=== PATIENT | male | born 1965 ===

== ENCOUNTER 2019-05-26 22:22 | Emergency (ER) | payer OTHER ==
[~2019-05-26] VITALS: Ht 177.8 cm; Wt 86.2 kg
--- NOTE | 2019-05-26 22:45 | NUR ---
ED Nurse Note: Patient walked in to ER from home due to left leg pain 04/19 with abrasion S/P fall 4 days ago. No discharges noted. No active bleeding noted. As per pt, he thinks that the abrasions got infected and that he could not walk properly because of the pain. alert and oriented, verbally responsive. No SOB. Breathing even and unlabored. Afebrile. VSS. Family member at bedside.
--- NOTE | 2019-05-26 23:08 | Emergency Room Report ---
History of Present Illness General Chief Complaint: Lower Extremity Injury Source: Patient Present Illness HPI Patient presents with complaints of increased redness and swelling to his left leg after falling 4 days ago patient has sustained an abrasion to the left lower leg He reports that he was putting peroxide on it however now noticed increased redness and swelling Denies any calf pain denies any fevers or chills Denies any chest pain or shortness of breath denies any abdominal pain Allergies: Coded Allergies: No Known Allergies (Unverified , 05/26/19) Patient History Past Medical History: see triage record Reviewed Nursing Documentation: PMH: Agreed; PSxH: Agreed Nursing Documentation-PM Past Medical History: No Stated History Hx Hypertension: Yes Review of Systems All Other Systems: negative except mentioned in HPI Physical Exam Vital Signs Date Time Temp Pulse Resp B/P (MAP) Pulse Ox O2 Delivery O2 Flow Rate FiO2 05/26/19 22:38 98.2 62 18 108/76 (87) 95 Room Air Sp02 EP Interpretation: reviewed, normal General Appearance: well appearing, no apparent distress Head: normocephalic, atraumatic Eyes: bilateral eye PERRL, bilateral eye EOMI ENT: hearing grossly normal, normal pharynx, TMs + canals normal, uvula midline Neck: full range of motion, supple, no meningismus, no bony tend Respiratory: lungs clear, normal breath sounds, no rhonchi, no respiratory distress, no retraction, no accessory muscle use Cardiovascular #1: normal peripheral pulses, regular rate, rhythm, no gallop, no JVD, no murmur Gastrointestinal: normal bowel sounds, non tender, soft, no mass, no organomegaly, non-distended, no guarding, no hernia, no pulsatile mass, no rebound Genitourinary: no CVA tenderness Musculoskeletal: other - Secondary healing abrasion involving the left anterior tibial area also proximal knee, area in the tibial area is approximately 6 x 2 cm there is some mild surrounding erythema and, swelling involving the left leg compared to the right side Neurologic: oriented x3, responsive, hospice liaison III-XII nml as tested, motor strength/ tone normal, sensory intact Psychiatric: mood/affect normal Skin: other - as above Lymphatic: normal inspection, no adenopathy Medical Decision Making Diagnostic Impression: Primary Impression: Cellulitis ER Course Multiple differentials including but not limited to sepsis, cellulitis, abscess considered Patient's blood work is at baseline levels patient was given Initial antibiotics through the IV Repeat evaluation reveals appropriate vital signs Patient stable for close outpatient follow-up Labs Test 05/26/19 23:00 White Blood Count 9.6 K/UL (4.8-10.8) Red Blood Count 5.08 M/UL (4.70-6.10) Hemoglobin 14.9 G/DL (14.2-18.0) Hematocrit 44.0 % (42.0-52.0) Mean Corpuscular Volume 87 FL (80-99) Mean Corpuscular Hemoglobin 29.3 PG (27.0-31.0) Mean Corpuscular Hemoglobin Concent 33.8 G/DL (32.0-36.0) Red Cell Distribution Width 11.1 % (11.6-14.8) Platelet Count 243 K/UL (150-450) Mean Platelet Volume 5.8 FL (6.5-10.1) Neutrophils (%) (Auto) 71.3 % (45.0-75.0) Lymphocytes (%) (Auto) 15.3 % (20.0-45.0) Monocytes (%) (Auto) 11.9 % (1.0-10.0) Eosinophils (%) (Auto) 0.8 % (0.0-3.0) Basophils (%) (Auto) 0.7 % (0.0-2.0) Sodium Level 141 MMOL/L (136-145) Potassium Level 3.8 MMOL/L (3.5-5.1) Chloride Level 104 MMOL/L (98-107) Carbon Dioxide Level 30 MMOL/L (21-32) Anion Gap 8 mmol/L (5-15) Blood Urea Nitrogen 13 mg/dL (7-18) Creatinine 0.9 MG/DL (0.55-1.30) Estimat Glomerular Filtration Rate > 60 mL/min (>60) Glucose Level 147 MG/DL (74-106) Calcium Level 9.5 MG/DL (8.5-10.1) Total Bilirubin 0.6 MG/DL (0.2-1.0) Aspartate Amino Transf (AST/SGOT) 18 U/L (15-37) Alanine Aminotransferase (ALT/SGPT) 33 U/L (12-78) Alkaline Phosphatase 78 U/L (46-116) Total Protein 6.7 G/DL (6.4-8.2) Albumin 3.2 G/DL (3.4-5.0) Globulin 3.5 g/dL Albumin/Globulin Ratio 0.9 (1.0-2.7) Last Vital Signs Date Time Temp Pulse Resp B/P (MAP) Pulse Ox O2 Delivery O2 Flow Rate FiO2 05/26/19 22:38 98.2 62 18 108/76 (87) 95 Room Air Status: improved Disposition: HOME, SELF-CARE Condition: Improved Scripts Ibuprofen* (MOTRIN*) 600 Mg Tablet 600 MG ORAL Q8H PRN for For Pain, #20 TAB 0 Refills Prov: Arline Tucker DO 05/27/19 Trimethoprim/Sulfamethoxazole 160/800* (BACTRIM DS TABLET*) 1 Each Tablet 1 TAB ORAL Q12H for 10 Days, #20 TAB 0 Refills Prov: Arline Tucker DO 05/27/19 Cephalexin* (KEFLEX*) 500 Mg Capsule 500 MG ORAL EVERY 6 HOURS for 10 Days, CAP Prov: Arline Tucker DO 05/27/19 Referrals: [facility],REFERRING (PCP) Additional Instructions: Patient is provided with the discharge instructions notified to follow up with primary doctor in the next 2-3 days otherwise return to the er with any worsening symptoms. Please note that this report is being documented using [employer] technology. This can lead to erroneous entry secondary to incorrect interpretation by the dictating instrument. Arline Tucker DO May 26, 2019 23:08
[2019-05-26] MEDS ORDERED: Bactrim-DS 1 tab ORAL ONE (23:15)
[2019-05-26] MEDS ORDERED: HYDROcodone/Acetamin 5/325 tab ORAL ONE (23:15)
[2019-05-26] MEDS ORDERED: cefTRIAXone 1 GM in NS 55 ML IVPB ONE (23:15)
[2019-05-26 23:30] LABS: BASOPHILS % (AUTO) 0.7 % (0.0-2.0); EOSINOPHILS % (AUTO) 0.8 % (0.0-3.0); HEMOGLOBIN 14.9 G/DL (14.2-18.0); LYMPHOCYTES % (AUTO) 15.3 % (20.0-45.0); MEAN CORPUSCULAR VOLUME 87 FL (80-99); MONOCYTES % (AUTO) 11.9 % (1.0-10.0); NEUTROPHILS % (AUTO) 71.3 % (45.0-75.0); PLATELET COUNT 243 K/UL (150-450); RED BLOOD COUNT 5.08 M/UL (4.70-6.10); RED CELL DISTRIBUTION WIDTH 11.1 % (11.6-14.8); WHITE BLOOD COUNT 9.6 K/UL (4.8-10.8)
[2019-05-26 23:39] LABS: ANION GAP 8 mmol/L (5-15); BLOOD UREA NITROGEN 13 mg/dL (7-18); CALCIUM 9.5 MG/DL (8.5-10.1); CARBON DIOXIDE 30 MMOL/L (21-32); CHLORIDE 104 MMOL/L (98-107); CREATININE 0.9 MG/DL (0.55-1.30); POTASSIUM 3.8 MMOL/L (3.5-5.1); SODIUM 141 MMOL/L (136-145)
[2019-05-26 23:44] LABS: ALANINE AMINOTRANSFERASE 33 U/L (12-78); ALBUMIN 3.2 G/DL (3.4-5.0); ALBUMIN/GLOBULIN RATIO 0.9 (1.0-2.7); ALKALINE PHOSPHATASE 78 U/L (46-116); ASPARTATE AMINO TRANSFERASE 18 U/L (15-37); BILIRUBIN,TOTAL 0.6 MG/DL (0.2-1.0)
[2019-05-27] MEDS ORDERED: CEPHALEXIN500 MG ORAL (00:02)
[2019-05-27] MEDS ORDERED: IBUPROFEN600 MG ORAL (00:02)
[2019-05-27] MEDS ORDERED: BACTRIM DS TAB1 EAC1 ORAL (00:02)
[2019-05-27 00:13] VITALS: BP 108/76
--- NOTE | 2019-05-27 00:13 | NUR ---
ED Nurse Note: Pt cleared by ERMD for discharge. DC instructions/prescription was given and explained to pt and verbalized understanding of teachings. All medical deviecs such as ID band and IV line removed. Pt is AAO x4, ambulatory and left with all personal belongings. Accompanied by a family member.
== END 2019-05-27 00:13 | disposition home or self-care (01) ==
LOC: EMR 23:04
DX: L03.116 Cellulitis of left lower limb (principal); I10 Essential (primary) hypertension
CPT/HCPCS: 36415; 80053; 85025; 87040; 96365; J0696; Z7502; 99284; J7030

== ENCOUNTER 2020-10-23 13:54 | Emergency (ER) | payer OTHER ==
[~2020-10-23] VITALS: Ht 175.3 cm; Wt 93.0 kg
[~2020-10-23 13:54] MED LIST: BACTRIM DS TAB1 EAC1 ORAL; CEPHALEXIN500 MG ORAL; IBUPROFEN600 MG ORAL
[2020-10-23] MEDS ORDERED: Morphine Sulfate 4mg/ml Inj (IV USE ONLY) IVP ONE (14:15)
--- NOTE | 2020-10-23 14:17 | NUR ---
Patient reports to the ER with c/o epigastric pain. He reports that he's been having this pain x 7 days. He reports that bought OTC Peptobismol, Colace but this proved ineffective. He reports that he had " a couple small turds this morning," but still has this epigastric pain which radiates from side to side.
[2020-10-23 14:41] VITALS: BP 161/110
[2020-10-23 15:02] LABS: APPEARANCE,URINE CLEAR; BILIRUBIN, URINE NEGATIVE (NEGATIVE); GLUCOSE, URINE (UA) NEGATIVE (NEGATIVE); KETONES,URINE 3+ (NEGATIVE); LEUKOCYTE ESTERASE ,URINE 1+ (NEGATIVE); NITRITE,URINE NEGATIVE (NEGATIVE); PH,URINE 5 (4.5-8.0); PROTEIN,URINE 3+ (NEGATIVE); UROBILINOGEN,URINE 1 MG/DL (0.0-1.0)
[2020-10-23 15:04] LABS: COLOR,URINE AMBER
[2020-10-23 15:07] LABS: ANION GAP 12 mmol/L (5-15); BLOOD UREA NITROGEN 14 mg/dL (7-18); CALCIUM 9.9 MG/DL (8.5-10.1); CARBON DIOXIDE 29 MMOL/L (21-32); CHLORIDE 101 MMOL/L (98-107); POTASSIUM 3.8 MMOL/L (3.5-5.1); SODIUM 141 MMOL/L (136-145)
[2020-10-23 15:09] LABS: BASOPHILS % (AUTO) 0.9 % (0.0-2.0); EOSINOPHILS % (AUTO) 0.3 % (0.0-3.0); HEMATOCRIT 51.4 % (42.0-52.0); HEMOGLOBIN 16.9 G/DL (14.2-18.0); LYMPHOCYTES % (AUTO) 11.2 % (20.0-45.0); MEAN CORPUSCULAR VOLUME 89 FL (80-99); MONOCYTES % (AUTO) 8.3 % (1.0-10.0); NEUTROPHILS % (AUTO) 79.3 % (45.0-75.0); PLATELET COUNT 277 K/UL (150-450); RED BLOOD COUNT 5.75 M/UL (4.70-6.10); RED CELL DISTRIBUTION WIDTH 11.9 % (11.6-14.8); WHITE BLOOD COUNT 12.3 K/UL (4.8-10.8)
[2020-10-23 15:10] LABS: ALANINE AMINOTRANSFERASE 44 U/L (12-78); ALBUMIN 4.1 G/DL (3.4-5.0); ALBUMIN/GLOBULIN RATIO 1.1 (1.0-2.7); ALKALINE PHOSPHATASE 87 U/L (46-116); ASPARTATE AMINO TRANSFERASE 20 U/L (15-37); BILIRUBIN,TOTAL 0.9 MG/DL (0.2-1.0)
--- NOTE | 2020-10-23 15:11 | NUR ---
spoke with regarding pt BP 159/117. MD notified. no new orders.
--- NOTE | 2020-10-23 15:27 | NUR ---
pt to CT
--- NOTE | 2020-10-23 15:39 | NUR ---
Patient returned from CT
--- NOTE | 2020-10-23 16:09 | Diagnostic Imaging Report ---
Clinical Indication: Abdominal pain Technique: No oral contrast utilized, per emergency room physician request IV administration nonionic contrast. Venous phase spiral acquisition obtained through the abdomen and pelvis. Multiplanar reconstructions were generated. Total dose length product 499 mGycm. CTDIvol(s) 9 mGy. Dose reduction achieved using automated exposure control Comparison: none Findings: Lack of enteric contrast limits assessment of the GI tract, although there is some contrast in the colon, possibly administered elsewhere. There is mild rectal wall thickening. There are small colonic diverticula. No evidence of acute diverticulitis. Normal appendix. There is questionable minimal wall thickening of the distal ileum. There is more striking wall thickening of the distal duodenum, as well as some inflammation of the periduodenal fat. No free or loculated intraperitoneal gas or fluid is evident. There is mild wall thickening of the distal esophagus and possibly a small sliding-type hiatal hernia. The remainder of the stomach is unremarkable. The liver, gallbladder, bile ducts are unremarkable. There is slight fuzziness of the peripancreatic fat in the region of the pancreatic head and uncinate. The spleen, adrenals, kidneys are unremarkable. No retroperitoneal or mesenteric mass or adenopathy. No pelvic mass or adenopathy. The included lung bases demonstrate some posterior dependent atelectatic changes. The bones demonstrate mild degenerative spondylosis changes. Impression: Limited assessment of the GI tract, due to lack of enteric contrast administration Wall thickening of the distal duodenum and infiltration of the periduodenal fat, suspicious for duodenitis or peptic ulcer disease. Infiltration of the fat surrounding the SMA process and pancreatic head, probably related to the above but could indicate mild focal pancreatitis changes. Correlation with pancreatic enzymes is recommended Mild rectal wall thickening, could indicate proctitis Questionable minimal wall thickening of the distal ileum, could indicate enteritis Small hiatal hernia. Questionable mild wall thickening of the distal esophagus, could indicate esophagitis Degenerative spondylosis changes incidentally noted The CT scanner at [facility] is accredited by the [employer] and the scans are performed using protocols designed to limit radiation exposure to as low as reasonably achievable to attain images of sufficient resolution adequate for diagnostic evaluation.
[2020-10-23 17:34] VITALS: BP 171/113
--- NOTE | 2020-10-23 17:39 | Emergency Room Report ---
History of Present Illness General Chief Complaint: Abdominal Pain Source: Patient Present Illness HPI 55-year-old male presents for evaluation. Complaining of abdominal pain. Started 4 days ago. Pain is sharp, right-sided, radiating to the back. 10 out of 10. Denies nausea or vomiting. Denies chest pain or shortness of breath. Denies fevers or chills. No other aggravating relieving factors. Denies any other associated symptoms Allergies: Coded Allergies: No Known Allergies (Unverified , 05/26/19) COVID-19 Screening Contact w/high risk pt: No Experienced COVID-19 symptoms?: No COVID-19 Testing performed CHEF: No Patient History Past Medical History: HTN, other - hepatitis c Past Surgical History: none Pertinent Family History: none Social History: Denies: smoking, alcohol use, drug use Immunizations: UTD Reviewed Nursing Documentation: PMH: Agreed; PSxH: Agreed Nursing Documentation-PMH Past Medical History: No History, Except For Hx Hypertension: Yes Review of Systems All Other Systems: negative except mentioned in HPI Physical Exam Vital Signs Date Time Temp Pulse Resp B/P (MAP) Pulse Ox O2 Delivery O2 Flow Rate FiO2 10/23/20 13:59 98.1 87 18 170/111 (130) 96 Room Air 10/23/20 14:41 97 Sp02 EP Interpretation: reviewed, normal General Appearance: no apparent distress, alert, GCS 15, non-toxic Head: normocephalic, atraumatic Eyes: bilateral eye normal inspection, bilateral eye PERRL ENT: hearing grossly normal, normal pharynx, no angioedema, normal voice Neck: full range of motion, supple/symm/no masses Respiratory: chest non-tender, lungs clear, normal breath sounds, speaking full sentences Cardiovascular #1: regular rate, rhythm, no edema Cardiovascular #2: 2+ carotid (R), 2+ carotid (L), 2+ radial (R), 2+ radial (L), 2+ dorsalis pedis (R), 2+ dorsalis pedis (L) Gastrointestinal: normal bowel sounds, soft, non-distended, no guarding, no rebound, tenderness - RUQ pain Rectal: deferred Genitourinary: normal inspection, no CVA tenderness Musculoskeletal: back normal, normal range of motion, gait/station normal, non- tender Neurologic: alert, motor strength/tone normal, oriented x3, sensory intact, responsive, speech normal Psychiatric: judgement/insight normal, memory normal, mood/affect normal, no suicidal/homicidal ideation Reflexes: 3+ bicep (R), 3+ bicep (L), 3+ tricep (R), 3+ tricep (L), 3+ knee (R), 3+ knee (L) Skin: no rash Lymphatic: no adenopathy Medical Decision Making Diagnostic Impression: Primary Impression: Pancreatitis Qualified Codes: K85.90 - Acute pancreatitis without necrosis or infection, unspecified ER Course Hospital Course 55-year-old male presents to ED with abdominal pain Differential diagnoses include: BPH, cystitis, pyelonephritis, kidney stone Clinical course Patient placed on stretcher. site monitor. After initial history and physical I ordered labs, IV fluids, pain medication and CT scan Labs - noted leukocytosis, Hb/Hct stable. electrolytes ok. Lipase elevated, troponin negative EKGnormal sinus rhythm no acute ischemic changes interpreted by me CT abdomen and pelvis - pancreatitis Case discussed with Dr. Mcnally and he agreed to accept the patient to his service for further care and support I feel this is a highly complex case requiring extensive working including EKG/Rhythm strip, Xray/CT/US, Blood/urine lab work, repeat exams while in ED, and administration of strong opiates/narcotics for pain control, admission to hospital or close patient follow up. Diagnosis - pancreatitis Patient admitted to floor in serious condition Laboratory Tests Test 10/23/20 14:23 White Blood Count 12.3 K/UL (4.8-10.8) H Red Blood Count 5.75 M/UL (4.70-6.10) Hemoglobin 16.9 G/DL (14.2-18.0) Hematocrit 51.4 % (42.0-52.0) Mean Corpuscular Volume 89 FL (80-99) Mean Corpuscular Hemoglobin 29.4 PG (27.0-31.0) Mean Corpuscular Hemoglobin Concent 32.9 G/DL (32.0-36.0) Red Cell Distribution Width 11.9 % (11.6-14.8) Platelet Count 277 K/UL (150-450) Mean Platelet Volume 6.1 FL (6.5-10.1) L Neutrophils (%) (Auto) 79.3 % (45.0-75.0) H Lymphocytes (%) (Auto) 11.2 % (20.0-45.0) L Monocytes (%) (Auto) 8.3 % (1.0-10.0) Eosinophils (%) (Auto) 0.3 % (0.0-3.0) Basophils (%) (Auto) 0.9 % (0.0-2.0) Urine Color Sri Urine Appearance Clear Urine pH 5 (4.5-8.0) Urine Specific Geronimo 1.020 (1.005-1.035) Urine Protein 3+ (NEGATIVE) H Urine Glucose (UA) Negative (NEGATIVE) Urine Ketones 3+ (NEGATIVE) H Urine Blood 2+ (NEGATIVE) H Urine Nitrite Negative (NEGATIVE) Urine Bilirubin Negative (NEGATIVE) Urine Ictotest Negative (NEGATIVE) Urine Urobilinogen 1 MG/DL (0.0-1.0) H Urine Leukocyte Esterase 1+ (NEGATIVE) H Urine RBC 0-2 /HPF (0 - 0) H Urine WBC 5-10 /HPF (0 - 0) H Urine Squamous Epithelial Cells Occasional /LPF Urine Calcium Oxalate Crystals Moderate /LPF (NONE) Urine Bacteria Few /HPF (NONE) Sodium Level 141 MMOL/L (136-145) Potassium Level 3.8 MMOL/L (3.5-5.1) Chloride Level 101 MMOL/L (98-107) Carbon Dioxide Level 29 MMOL/L (21-32) Anion Gap 12 mmol/L (5-15) Blood Urea Nitrogen 14 mg/dL (7-18) Creatinine 1.0 MG/DL (0.55-1.30) Estimat Glomerular Filtration Rate > 60 mL/min (>60) Glucose Level 116 MG/DL (74-106) H Calcium Level 9.9 MG/DL (8.5-10.1) Total Bilirubin 0.9 MG/DL (0.2-1.0) Aspartate Amino Transf (AST/SGOT) 20 U/L (15-37) Alanine Aminotransferase (ALT/SGPT) 44 U/L (12-78) Alkaline Phosphatase 87 U/L (46-116) Troponin I 0.000 ng/mL (0.000-0.056) Total Protein 7.9 G/DL (6.4-8.2) Albumin 4.1 G/DL (3.4-5.0) Globulin 3.8 g/dL Albumin/Globulin Ratio 1.1 (1.0-2.7) Lipase 411 U/L (73-393) H CT/MRI/US Diagnostic Results CT/MRI/US Diagnostic Results : Imaging Test Ordered: CT A/P Impression Procedure: CT Abdomen Pelvis w/Contrast Clinical Indication: Abdominal pain Technique: No oral contrast utilized, per emergency room physician request IV administration nonionic contrast. Venous phase spiral acquisition obtained through the abdomen and pelvis. Multiplanar reconstructions were generated. Total dose length product 499 mGycm. CTDIvol(s) 9 mGy. Dose reduction achieved using automated exposure control Comparison: none Findings: Lack of enteric contrast limits assessment of the GI tract, although there is some contrast in the colon, possibly administered elsewhere. There is mild rectal wall thickening. There are small colonic diverticula. No evidence of acute diverticulitis. Normal appendix. There is questionable minimal wall thickening of the distal ileum. There is more striking wall thickening of the distal duodenum, as well as some inflammation of the periduodenal fat. No free or loculated intraperitoneal gas or fluid is evident. There is mild wall thickening of the distal esophagus and possibly a small sliding-type hiatal hernia. The remainder of the stomach is unremarkable. The liver, gallbladder, bile ducts are unremarkable. There is slight fuzziness of the peripancreatic fat in the region of the pancreatic head and uncinate. The spleen, adrenals, kidneys are unremarkable. No retroperitoneal or mesenteric mass or adenopathy. No pelvic mass or adenopathy. The included lung bases demonstrate some posterior dependent atelectatic changes. The bones demonstrate mild degenerative spondylosis changes. Impression: Limited assessment of the GI tract, due to lack of enteric contrast administration Wall thickening of the distal duodenum and infiltration of the periduodenal fat, suspicious for duodenitis or peptic ulcer disease. Infiltration of the fat surrounding the SMA process and pancreatic head, probably related to the above but could indicate mild focal pancreatitis changes. Correlation with pancreatic enzymes is recommended Mild rectal wall thickening, could indicate proctitis Questionable minimal wall thickening of the distal ileum, could indicate enteritis Small hiatal hernia. Questionable mild wall thickening of the distal esophagus, could indicate esophagitis Degenerative spondylosis changes incidentally noted The CT scanner at [facility] is accredited by the [employer] and the scans are performed using protocols designed to limit radiation exposure to as low as reasonably achievable to attain images of sufficient resolution adequate for diagnostic evaluation. Dictated By: Joaquin Glynn MD Electronically Signed By:Joaquin Glynn MD Signed Date/Time10/23/20 1602 CC: Hima Breen MD Last Vital Signs Date Time Temp Pulse Resp B/P (MAP) Pulse Ox O2 Delivery O2 Flow Rate FiO2 10/23/20 14:41 79 Room Air 97 10/23/20 14:41 161/110 97 10/23/20 13:59 98.1 18 Status: improved Disposition: ADMITTED INPATIENT Condition: Serious Referrals: [facility],REFERRING (PCP) Hima Breen MD Oct 23, 2020 17:38
[2020-10-23 19:07] VITALS: BP 153/91
--- NOTE | 2020-10-23 20:47 | NUR ---
pt transported to floor via cart
--- NOTE | 2020-10-23 20:55 | NUR ---
NURSE NOTES: Received patient from ED via gurney, awake, alert, oriented x4, ambulatory, able to make his needs known, belongings list and items are verified and signed for. IV site is clean dry and intact, on room air, oriented to the room, call light is within reach, bed is lowered, locked, alarm is on. Awaiting admit orders from MD. Will continue to follow up on patients safety and comfort.
[2020-10-23] MEDS ORDERED: Acetaminophen 500mg (ES) tab ORAL PRN (21:30)
--- NOTE | 2020-10-23 22:06 | NUR ---
ELOPEMENT: Patient left at 2150 on 10/23/2020 after he was told he will not be on blood pressure medication as of right now. Patient didn't let RN to explain MD admit orders, patient refused to sign AMA form, patient's IV was removed and ID band removed as well. MD, charge nurse and supervisor agricultural education were notified.
--- NOTE | 2020-10-24 12:15 | NUR ---
[employer] FAXED TO ISMA[facility] Scott # [phone] FAX# [phone]
--- NOTE | 2020-10-24 13:55 | Discharge Summary ---
Discharge Summary Discharge Summary _ Date of admission: 10/23/2020 Patient left AGAINST MEDICAL ADVICE on 10/23/2020 History of Present Illness and Brief Hospital Course Mr. Buckley is a 55-year-old male with past medical history of hypertension who presented to ED for evaluation of abdominal pain x4 days. Initial laboratory studies were remarkable for leukocytosis, stable H&H, elevated lipase, and negative troponin. EKG showed normal sinus rhythm without acute ischemic changes. CT abdomen/pelvis showed signs of pancreatitis. Patient was admitted to the hospital for further management. Patient was transferred to the floor. Patient had elevated blood pressure. However, no antihypertensive order was made at the time. Patient requested to be released from the hospital. Patient was not evaluated by the admitting physician or any other consultants at this time. Patient refused to sign AMA form and left the hospital despite education on risks of leaving AMA. Final diagnoses Hypertension Hiatal hernia Degenerative spondylosis Pancreatitis I have been assigned to dictate discharge summary for this account. I was not involved in the patient's management Lincoln Parker Oct 24, 2020 13:55
--- NOTE | 2020-10-24 16:32 | Cardiology Report ---
APPROVED REPORT EKG Measurement Heart [id number] <Conclusion> Normal sinus rhythm Normal ECG
--- NOTE | 2020-10-24 21:59 | History and Physical Report ---
DATE OF ADMISSION: 10/23/2020 Patient left against medical advice very shortly after admission. Patient was discharged on the same day that he was admitted, did not stay for too long, and very shortly from the time he was admitted left against medical advice, did not want to await for the doctor to be seen. Patient was going to be admitted for pancreatitis essentially. The consultants were called, but then patient left. Arline Mcnally M.D. DR: LATOYA JOB#: [id number] CC:
--- NOTE | 2020-10-24 22:14 | History and Physical Report ---
DATE OF ADMISSION: 10/23/2020 BRIEF HISTORY: The patient left against medical advice apparently shortly after some time the patient was admitted. Left AMA on the same day that he was admitted. Did not want to wait for any doctors to see. The patient was originally admitted for pancreatitis and skull chopper was consulted, so let this serve as H and P since the patient left before we could examine the patient and left against medical advice. Arline Mcnally M.D. DR: Juan Antonio JOB#: [id number] CC:
== END 2020-10-23 20:49 | disposition left against medical advice (07) ==
LOC: EMR 14:26 → UNDOADMIN 17:06 → 4E 17:06 → EDBEDREQ 19:44 → UNDODISIN 21:50
DX: K85.90 Acute pancreatitis without necrosis or infection, unspecified (principal); I10 Essential (primary) hypertension; K44.9 Diaphragmatic hernia without obstruction or gangrene; M47.899 Other spondylosis, site unspecified; Z86.19 Personal history of other infectious and parasitic diseases
CPT/HCPCS: 36415; 74177; 80053; 81003; 83690; 84484; 85025; 93005; 96361; 96374; J0360; J2270; J7030; Q9967; Z7502; 99285